=== PATIENT | female | born 1995 | race Caucasian/White ===

== ENCOUNTER 2018-12-25 17:18 | Emergency (ER) | payer SELFPAY ==
[2018-12-25 17:25] VITALS: BP 130/86
--- NOTE | 2018-12-25 17:47 | ER Document Report ---
ED Medical Screen (RME) - General Stated Complaint: ABSCESS/LEFT FOREARM Time Seen by Provider: 12/25/18 17:44 Mode of Arrival: Ambulatory Information source: Patient Notes: 23-year-old female with history of IV drug use presents to the emergency department with an abscess to her left forearm where she has been shooting up. No complaints of fever vomiting diarrhea. Reports she shoots up cocaine. Reports she had an abscess last year that needed surgery. I have greeted and performed a rapid initial assessment of this patient. A comprehensive ED assessment and evaluation of the patient, analysis of test results and completion of the medical decision making process will be conducted by additional ED providers. Dictation of this chart was performed using voice recognition software; therefore, there may be some unintended grammatical errors. - Related Data Allergies/Adverse Reactions: divalproex sodium [From Depakote] Allergy (Verified 12/25/18 17:46) Haldol Allergy (Uncoded 12/25/18 17:46) Physical Exam - Vital signs Vitals: Temp Pulse Resp BP Pulse Ox 98.0 F 100 18 130/86 H 98 12/25/18 17:24 12/25/18 17:24 12/25/18 17:24 12/25/18 17:24 12/25/18 17:24 Course - Vital Signs Vital signs: Temp Pulse Resp BP Pulse Ox 98.0 F 100 18 130/86 H 98 12/25/18 17:24 12/25/18 17:24 12/25/18 17:24 12/25/18 17:24 12/25/18 17:24
[2018-12-25 18:19] LABS: ABSOLUTE BASOPHILS # (AUTO) 0.1 10^3/uL (0.0-0.2); ABSOLUTE EOSINOPHILS # (AUTO) 0.5 10^3/uL (0.0-0.6); ABSOLUTE LYMPHOCYTES (AUTO) 2.5 10^3/uL (0.5-4.7); ABSOLUTE MONOCYTES (AUTO) 0.5 10^3/uL (0.1-1.4); ABSOLUTE NEUT (AUTO) 4.5 10^3/uL (1.7-8.2); BASOPHILS % (AUTO) 0.8 % (0-2); EOSINOPHILS % (AUTO) 6.1 % (0-6); HEMATOCRIT 39.9 % (36.0-47.0); HEMOGLOBIN 13.5 g/dL (12.0-15.5); LYMPHOCYTES % (AUTO) 31.4 % (13-45); MEAN CORPUSCULAR HGB CONC 33.9 g/dL (32.0-36.0); MEAN CORPUSCULAR VOLUME 83 fl (80-97); MONOCYTES % (AUTO) 6.2 % (3-13); PLATELET COUNT 336 10^3/uL (150-450); RED BLOOD COUNT 4.84 10^6/uL (3.72-5.28); RED CELL DISTRIBUTION WIDTH 14.1 % (11.5-14.0); SEGMENTED NEUTROPHILS % (AUTO) 55.5 % (42-78); TOTAL CELLS COUNTED % (AUTO) 100 %
[2018-12-25 18:33] LABS: ALBUMIN 4.2 g/dL (3.5-5.0); ALKALINE PHOSPHATASE 80 U/L (38-126); ANION GAP 8 (5-19); ASPARTATE AMINO TRANSFERASE 29 U/L (14-36); BILIRUBIN,DIRECT 0.2 mg/dL (0.0-0.4); BILIRUBIN,TOTAL 0.2 mg/dL (0.2-1.3); BLOOD UREA NITROGEN 11 mg/dL (7-20); CALCIUM 9.6 mg/dL (8.4-10.2); CARBON DIOXIDE 27 mmol/L (22-30); CHLORIDE 106 mmol/L (98-107); GLUCOSE 97 mg/dL (75-110); POTASSIUM 4.1 mmol/L (3.6-5.0); TOTAL PROTEIN 7.7 g/dL (6.3-8.2)
== END 2018-12-25 18:33 | disposition left against medical advice (07) ==
LOC: ER 17:18
DX: L02.414 Cutaneous abscess of left upper limb (principal); Z88.8 Allergy status to other drugs, medicaments and biological substances; Z53.20 Procedure and treatment not carried out because of patient's decision for unspecified reasons
CPT/HCPCS: 36415; 80053; 85025; 87040

== ENCOUNTER 2018-12-27 22:48 | Emergency (ER) | payer SELFPAY ==
--- NOTE | 2018-12-28 01:00 | ER Document Report ---
ED Extremity Problem, Upper - General Chief Complaint: Skin Problem Stated Complaint: POSSIBLE ABSCESS Time Seen by Provider: 12/28/18 00:52 Notes: Patient is a 23-year-old female that comes emergency department for chief complaint of 1 week of worsening swelling and pain with redness in the left mid forearm. She states she is concerned she has an abscess. She has had abscesses in the past. She does admit to injecting into the same area, she injects cocaine. In view within the past month, she denies any daily medications, she denies past medical history otherwise, she denies complaints otherwise. She denies fever. TRAVEL OUTSIDE OF THE [place] IN LAST 30 DAYS: No - Related Data Allergies/Adverse Reactions: divalproex sodium [From Depakote] Allergy (Verified 12/25/18 17:46) Haldol Allergy (Uncoded 12/25/18 17:46) Past Medical History - General Information source: Patient - Social History Smoking Status: Current Every Day Smoker Frequency of alcohol use: None Drug Abuse: Cocaine Lives with: Family Family History: Reviewed & Not Pertinent Patient has suicidal ideation: No Patient has homicidal ideation: No - Immunizations Immunizations up to date: Yes Hx Diphtheria, Pertussis, Tetanus Vaccination: Yes Review of Systems - Review of Systems Constitutional: No symptoms reported EENT: No symptoms reported Cardiovascular: No symptoms reported Respiratory: No symptoms reported Gastrointestinal: No symptoms reported Genitourinary: No symptoms reported Female Genitourinary: No symptoms reported Musculoskeletal: See HPI Skin: See HPI Hematologic/Lymphatic: No symptoms reported Neurological/Psychological: No symptoms reported Physical Exam - Vital signs Vitals: Temp Pulse Resp BP Pulse Ox 99 F 116 H 16 144/80 H 97 12/27/18 23:14 12/27/18 23:14 12/27/18 23:14 12/27/18 23:14 12/27/18 23:14 - Notes Notes: GENERAL: Alert, talks nervously but is otherwise well-appearing HEAD: Normocephalic, atraumatic. EYES: Pupils equal, round, and reactive to light. Extraocular movements intact. ENT: Oral mucosa moist, tongue midline. Oropharynx unremarkable. Airway patent. Nares patent, no nasal septal hematoma, TM's intact. NECK: Full range of motion. Supple. Trachea midline. LUNGS: Clear to auscultation bilaterally, no wheezes, rales, or rhonchi. No respiratory distress. HEART: Borderline tachycardic, normal rhythm, no murmur ABDOMEN: Soft, non-tender. Non-distended. Bowel sounds present in all 4 quadrants. GENITOURINARY: Deferred EXTREMITIES: There is a fluctuant swelling in the mid left forearm with surrounding cellulitis. No swelling at the elbow or wrist, full range of motion at the elbow and wrist, normal capillary refill and sensation. Otherwise unremarkable exam. BACK: no cervical, thoracic, lumbar midline tenderness. No saddle anesthesia, normal distal neurovascular exam. Moves all extremities in full range of motion. NEUROLOGICAL: Alert and oriented x3. Normal speech. Cranial nerves II through XII grossly intact. PSYCH: Speaks nervously but otherwise this is unremarkable SKIN: Warm, dry, normal turgor. No rashes or lesions noted. Course - Re-evaluation Re-evalutation: Patient with an obvious abscess with surrounding cellulitis. Patient initially very anxious about this but after discussion of options she was very agreeable with simply LMX being placed and the area being excised after being thoroughly cleansed. She did very well with this. Good purulent drainage was obtained, swelling actually did go down significantly, patient no longer has pain reported after the incision and drainage. She does not have a fever. She has no joint involvement. We will try oral antibiotics for the cellulitis with strict return precautions. X-ray was negative for any needle or concerning finding. I did discuss with patient substance abuse. She states that she has used cocaine intermittently, she states she is to have an alcohol problem and completely quit, she states that she feels she can completely quit this as well, she states she understands the extreme risks, she states that she does have good follow-up for psychiatric management and she does not want to be evaluated by mental health care. She denies SI or HI. Patient is calm, vital signs are normal now after the procedure, she expresses gratefulness and understanding of plan. Stable at time of discharge. - Vital Signs Vital signs: Temp Pulse Resp BP Pulse Ox 98.0 F 82 16 122/64 100 12/28/18 02:30 12/28/18 02:30 12/28/18 02:30 12/28/18 02:30 12/28/18 02:30 Procedures - Incision and Drainage Left forearm Type: Single Anesthetic type: Other - LMX Blade size: 11 I&D procedure: Shurclens applied, Sterile dressing applied Incision Method: Incision made by scalpel Amount/type of drainage: about 4 cc of purulent drainage - Laceration/Wound Repair Left forearm Wound length (cm): 0 Wound's Depth, Shape: Other - no laceration repair performed Discharge - Discharge Clinical Impression: Abscess Cellulitis Qualifiers: Site of cellulitis: extremity Site of cellulitis of extremity: upper extremity Laterality: left Qualified Code(s): L03.114 - Cellulitis of left upper limb Condition: Stable Disposition: HOME, SELF-CARE Additional Instructions: The abscess has been drained, continue to clean, clean with soap and water, keep absorbing dressing over the area. Take antibiotics as prescribed to completion. Follow-up with primary care. Return if you worsen including developing swelling, spreading redness, fever, or any other concerning or worsening symptoms. Prescriptions: Sulfamethoxazole/Trimethoprim [Bactrim Ds Tablet] 1 each PO BID #14 tablet Cephalexin Monohydrate [Keflex 500 mg Capsule] 500 mg PO QID #28 capsule
[2018-12-28] MEDS ORDERED: LIDOCAINE 1% INJ-PF (10 MG/ML) 30 ML SDV INJ ONE (01:03)
[2018-12-28] MEDS ORDERED: LIDOCAINE 4% TRANSPARENT DRESSING 5 GM KIT TP ONE (01:04)
--- NOTE | 2018-12-28 01:36 | RADIOLOGY REPORT (SQ) ---
2 VIEWS OF LEFT FOREARM EXAM DATE: 12/28/2018 1:03 AM CDT HISTORY: Evaluate for foreign body. COMPARISON: None. FINDINGS: No acute fracture or dislocation is seen. The joint spaces are preserved. The soft tissues are swollen. No radiopaque foreign body is identified. IMPRESSION: No acute fracture or foreign body.
[2018-12-28] MEDS ORDERED: SULFAMETHOXAZOLE/TRIMETHOPRIM 800-160 MG TABLET PO ONE (01:56)
[2018-12-28] MEDS ORDERED: CEPHALEXIN 500 MG CAPSULE PO ONE (01:56)
[2018-12-28 02:44] VITALS: BP 122/64
== END 2018-12-28 02:44 | disposition home or self-care (01) ==
LOC: ER 22:48
DX: L02.414 Cutaneous abscess of left upper limb (principal); L03.114 Cellulitis of left upper limb; F14.10 Cocaine abuse, uncomplicated; F17.200 Nicotine dependence, unspecified, uncomplicated; Z88.8 Allergy status to other drugs, medicaments and biological substances
CPT/HCPCS: 73090; 10060; J3490 ×2; 99283

== ENCOUNTER 2019-03-29 02:26 | Inpatient (IN) | payer SELFPAY ==
[2019-03-29] MEDS ORDERED: NORMAL SALINE 1000 ML 1,000 ML IV ONE (03:22)
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
[2019-03-29 03:44] LABS: ABSOLUTE BASOPHILS # (AUTO) 0.1 10^3/uL (0.0-0.2); ABSOLUTE EOSINOPHILS # (AUTO) 0.1 10^3/uL (0.0-0.6); ABSOLUTE NEUT (AUTO) 9.6 10^3/uL (1.7-8.2); EOSINOPHILS % (AUTO) 0.9 % (0-6); HEMATOCRIT 36.4 % (36.0-47.0); HEMOGLOBIN 12.3 g/dL (12.0-15.5); LYMPHOCYTES % (AUTO) 15.5 % (13-45); MEAN CORPUSCULAR HEMOGLOBIN 27.8 pg (27.0-33.4); MEAN CORPUSCULAR HGB CONC 33.9 g/dL (32.0-36.0); MEAN CORPUSCULAR VOLUME 82 fl (80-97); MONOCYTES % (AUTO) 7.4 % (3-13); PLATELET COUNT 293 10^3/uL (150-450); RED BLOOD COUNT 4.44 10^6/uL (3.72-5.28); RED CELL DISTRIBUTION WIDTH 13.8 % (11.5-14.0); SEGMENTED NEUTROPHILS % (AUTO) 75.2 % (42-78); TOTAL CELLS COUNTED % (AUTO) 100 %; WHITE BLOOD COUNT 12.8 10^3/uL (4.0-10.5)
[2019-03-29 03:46] LABS: VENOUS BLOOD BASE EXCESS 0.9 mmol/L; VENOUS BLOOD PCO2 43.1 mmHg (35-63); VENOUS BLOOD PH 7.4 (7.30-7.42)
[2019-03-29 04:09] LABS: ALBUMIN 3.8 g/dL (3.5-5.0); ALKALINE PHOSPHATASE 158 U/L (38-126); ANION GAP 10 (5-19); ASPARTATE AMINO TRANSFERASE 99 U/L (14-36); BILIRUBIN,DIRECT 0.3 mg/dL (0.0-0.4); BILIRUBIN,TOTAL 0.5 mg/dL (0.2-1.3); BLOOD UREA NITROGEN 15 mg/dL (7-20); CALCIUM 9.2 mg/dL (8.4-10.2); CARBON DIOXIDE 27 mmol/L (22-30); CHLORIDE 97 mmol/L (98-107); GLUCOSE 103 mg/dL (75-110); POTASSIUM 3.7 mmol/L (3.6-5.0); TOTAL PROTEIN 7.4 g/dL (6.3-8.2)
[2019-03-29 04:10] LABS: PROTHROMBIN TIME 13.2 SEC (11.4-15.4)
[2019-03-29] MEDS ORDERED: CHLORPROMAZINE HCL INJ 25 MG/1 ML AMPULE IV PRN (05:02)
[2019-03-29] MEDS ORDERED: MORPHINE SULFATE 10 MG/ML INJ IV PRN ×5 (05:02→10:18)
[2019-03-29] MEDS ORDERED: METOPROLOL TARTRATE PF/INJ 5 MG/5 ML SDV IV PRN (05:02)
[2019-03-29] MEDS ORDERED: HYDRALAZINE HCL INJ/PF 20 MG/1 ML SDV IV PRN (05:02)
[2019-03-29] MEDS ORDERED: IBUPROFEN 800 MG TABLET PO PRN (05:02)
[2019-03-29] MEDS ORDERED: ACETAMINOPHEN 325 MG TABLET PO PRN (05:02)
[2019-03-29] MEDS ORDERED: MAGNESIUM HYDROXIDE SUSP 30 ML UDCUP PO PRN (05:02)
[2019-03-29] MEDS ORDERED: NICOTINE 21 MG/24 HR PATCH.TD24 TD PRN (05:02)
[2019-03-29] MEDS ORDERED: MAG HYDROX/AL HYDROX/SIMETH SUSP 30 ML UDCUP PO PRN (05:02)
[2019-03-29] MEDS ORDERED: DEXTROSE 50%-WATER 25 GM/50 ML DISP.SYRIN IV PRN ×2 (05:08)
[2019-03-29] MEDS ORDERED: DEXTROSE 40% GEL 15 GM TUBE PO PRN ×2 (05:08)
[2019-03-29] MEDS ORDERED: PROMETHAZINE HCL INJ 25 MG/1 ML VIAL IV PRN ×2 (05:08→10:18)
[2019-03-29] MEDS ORDERED: GLUCAGON,HUMAN RECOMB 1 MG INJ SUBCUT PRN (05:08)
[2019-03-29] MEDS ORDERED: MEROPENEM 1 GM VIAL IV SCH (06:00)
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
[2019-03-29] MEDS: DEXTROSE 5%-LACTATED RINGERS 1,000 ML IV PRN ×2 (07:06→11:49)
[2019-03-29] MEDS ORDERED: MEROPENEM 1 GM VIAL ONE (07:07)
[2019-03-29] MEDS: HEPARIN SOD (PORCINE) 5,000 UNIT/ML 1 ML VIAL SUBCUT SCH ×2 (07:08→14:44)
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
[2019-03-29 07:26] LABS: APPEARANCE,URINE CLEAR; BILIRUBIN,URINE NEGATIVE (NEGATIVE); COLOR,URINE AMBER; GLUCOSE, URINE NEGATIVE (NEGATIVE); KETONES,URINE NEGATIVE (NEGATIVE); LEUKOCYTE ESTERASE,URINE NEGATIVE (NEGATIVE); NITRITE,URINE NEGATIVE (NEGATIVE); PROTEIN,URINE 30 mg/dL (NEGATIVE); URINE SPECIFIC GRAVITY 1.023
[2019-03-29] MEDS: MEROPENEM 1 GM in NORMAL SALINE 50 ML IV SCH ×2 (07:40→14:55)
[2019-03-29 07:41] LABS: URINE AMPHETAMINES SCREEN NEGATIVE; URINE BARBITURATES SCREEN NEGATIVE; URINE BENZODIAZEPINES SCREEN NEGATIVE; URINE MARIJUANA (THC) SCREEN NEGATIVE; URINE METHADONE SCREEN NEGATIVE; URINE PHENCYCLIDINE SCREEN NEGATIVE
[2019-03-29 07:43] LABS: URINE COCAINE SCREEN UNCONFIRMED POSITIVE
[2019-03-29] MEDS ORDERED: LIDOCAINE 1%/EPINEPHRINE INJ 20 ML VIAL ONE (08:30)
[2019-03-29] MEDS ORDERED: PROPOFOL INJ 200 MG/20 ML VIAL IV ONE (09:10)
[2019-03-29] MEDS ORDERED: MIDAZOLAM 2 MG/2 ML INJ ONE (09:10)
[2019-03-29] MEDS ORDERED: FENTANYL CITRATE INJ/PF 100 MCG/2 ML AMPUL ONE (09:10)
[2019-03-29] MEDS ORDERED: KETOROLAC TROMETHAMINE INJ/PF 30 MG/1 ML SDV IV PRN (09:28)
[2019-03-29] MEDS ORDERED: VANCOMYCIN HCL 2,000 MG in DEXTROSE 5%-WATER 500 ML IV SCH (10:00)
[2019-03-29] MEDS ORDERED: FAMOTIDINE INJ/PF 20 MG/2 ML SDV IV SCH (10:00)
[2019-03-29] MEDS ORDERED: VANCOMYCIN HCL INJ 1000 MG VIAL IV SCH (10:00)
--- NOTE | 2019-03-29 10:10 | Operative Report ---
Nonrecallable Operative Report DATE OF SURGERY: 03/29/19 PREOPERATIVE DIAGNOSIS: chest wall /breast abscess right POSTOPERATIVE DIAGNOSIS: Chest wall/breast abscess right side OPERATION: Excisional debridement chest wall/breast abscess right SURGEON: LIT BRODERICK ANESTHESIA: LMAC TISSUE REMOVED OR ALTERED: Skin subcutaneous tissue breast tissue right chest wall COMPLICATIONS: None ESTIMATED BLOOD LOSS: 25 cc INTRAOPERATIVE FINDINGS: See dictation PROCEDURE: Procedure; patient was brought the operating awake alert in stable condition placed in the upper table supine position given anesthesia. LMAC anesthesia was utilized. After appropriate timeout site verification the right breast and chest wall were prepped and draped in usual sterile fashion. Using 1% lidocaine with epinephrine I infiltrated the skin around the abscess which was approximately 2 cm in diameter but a area of 6 cm x 4 cm of induration. After anesthetizing the skin with 1% lidocaine with epi epinephrine elliptical incision was made around the abscess approximately 6 8 cm long by 4 cm wide at the superior aspect of the breast on the chest wall. Dissection was then carried down through subcutaneous tissue with the Bovie cautery until we brought reached the subcutaneous fibrofatty tissue and then down around the the abscess cavity to the pectoralis major muscle was then dissected off the muscle itself. It was sent for C&S and Gram stain and pathology. The wound bed was now clean but slightly indurated there is no other purulent drainage noted. Quarter inch Gaby drain was placed at the base of the wound brought out through the lateral aspect of it and the subcutaneous tissue was reapproximated with interrupted 2-0 Vicryl sutures the skin was then left open and packed with a saline soaked Betadine sponge. Sterile dressing was then applied the patient was then transferred recovery in stable condition
[2019-03-29] MEDS ORDERED: MEPERIDINE HCL/PF INJ 25 MG/1 ML DISP.SYRIN IV PRN (10:18)
[2019-03-29] MEDS ORDERED: DIPHENHYDRAMINE HCL 50 MG/ML VIAL IV PRN (10:18)
[2019-03-29] MEDS ORDERED: FENTANYL CITRATE INJ/PF 100 MCG/2 ML AMPUL IV PRN ×3 (10:18)
[2019-03-29] MEDS ORDERED: KETOROLAC TROMETHAMINE INJ/PF 30 MG/1 ML SDV ONE (10:32)
[2019-03-29] MEDS ORDERED: LORAZEPAM INJ 2 MG/1 ML VIAL ONE (10:33)
[2019-03-29] MEDS ORDERED: HYDROMORPHONE HCL INJ/PF 2 MG/ML AMPULE ONE (10:33)
[2019-03-29] MEDS: DOCUSATE SODIUM 100 MG CAPSULE PO SCH ×2 (11:49→18:00)
[2019-03-29] MEDS: VANCOMYCIN HCL 1,250 MG in DEXTROSE 5%-WATER 250 ML IV SCH ×2 (11:49→17:58)
[2019-03-29 18:47] VITALS: BP 122/67
--- NOTE | 2019-03-29 20:44 | EKG REPORT ---
SEVERITY:- ABNORMAL ECG - SINUS TACHYCARDIA FIRST DEGREE AV BLOCK RIGHT ATRIAL ABNORMALITY BORDERLINE T WAVE ABNORMALITIES : Confirmed by: Obinna Sawant 29-Mar-2019 20:43:45
--- NOTE | 2019-03-30 16:45 | Left Against Medical Advice ---
Against Medical Advice Admission Date/Time: 03/29/19 05:06 Primary Care Provider: Date of Patient Emigration: 03/29/19 - Diagnosis: (1) Abscess or cellulitis of chest wall Is this a current diagnosis for this admission?: Yes (2) Intravenous drug abuse Is this a current diagnosis for this admission?: Yes - Summary: Summary: Please see Admission and Progress Notes as well. DESTINY HENAO is a 23 F, who LEFT AGAINST MEDICAL ADVICE. The Patient was admitted on 03/29/19 05:06. Found out this morning that patient apparently left AMA last night. She agreed to stay for 1 more night yesterday afternoon when I discussed the risks of going against AMA. Belly Dancer was not made aware by evening staff that patient went AMA.
== END 2019-03-29 19:53 | disposition left against medical advice (07) | DRG 572 ==
LOC: ER 02:26 → EH 05:06 → 3S 06:24
PROVIDERS: ADMIT Emergency Medicine; ATTEND Emergency Medicine
PROC: 0JB60ZZ Excision of Chest Subcutaneous Tissue and Fascia, Open Approach (ICD-10-PCS; principal; 2019-03-29 10:00)
DX: L02.213 Cutaneous abscess of chest wall (principal); F11.10 Opioid abuse, uncomplicated; F14.10 Cocaine abuse, uncomplicated; F17.210 Nicotine dependence, cigarettes, uncomplicated; Z83.3 Family history of diabetes mellitus; Z82.49 Family history of ischemic heart disease and other diseases of the circulatory system; Z90.49 Acquired absence of other specified parts of digestive tract; Z88.8 Allergy status to other drugs, medicaments and biological substances
CPT/HCPCS: 36415; 400; 80053; 80307; 81001; 82803; 83605; 84703; 85025; 85610; 87040; 87070; 87075; 87077; 87086; 87205; 88305; 93005; 93010; 96360; 99284; 99406; J1170; J1885; J2060; J2185; J2250; J2270; J2704; J3010; J3370; J3490; J7030; J7060; J7121; S0028

== ENCOUNTER 2019-03-31 15:31 | Emergency (ER) | payer SELFPAY ==
[2019-03-31 15:41] VITALS: BP 114/78
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
[2019-03-31 18:51] LABS: APPEARANCE,URINE SLIGHTLY-CLOUDY; BILIRUBIN,URINE NEGATIVE (NEGATIVE); COLOR,URINE YELLOW; GLUCOSE, URINE NEGATIVE (NEGATIVE); KETONES,URINE NEGATIVE (NEGATIVE); PROTEIN,URINE NEGATIVE (NEGATIVE); URINE SPECIFIC GRAVITY 1.017
[2019-03-31 19:33] LABS: ABSOLUTE EOSINOPHILS # (AUTO) 0.4 10^3/uL (0.0-0.6); ABSOLUTE LYMPHOCYTES (AUTO) 1.8 10^3/uL (0.5-4.7); ABSOLUTE MONOCYTES (AUTO) 0.6 10^3/uL (0.1-1.4); ABSOLUTE NEUT (AUTO) 3.6 10^3/uL (1.7-8.2); BASOPHILS % (AUTO) 0.6 % (0-2); HEMOGLOBIN 11.6 g/dL (12.0-15.5); LYMPHOCYTES % (AUTO) 27.8 % (13-45); MEAN CORPUSCULAR HEMOGLOBIN 27.9 pg (27.0-33.4); MEAN CORPUSCULAR HGB CONC 34.1 g/dL (32.0-36.0); MEAN CORPUSCULAR VOLUME 82 fl (80-97); PLATELET COUNT 329 10^3/uL (150-450); RED BLOOD COUNT 4.15 10^6/uL (3.72-5.28); RED CELL DISTRIBUTION WIDTH 13.8 % (11.5-14.0); SEGMENTED NEUTROPHILS % (AUTO) 56.6 % (42-78); TOTAL CELLS COUNTED % (AUTO) 100 %; WHITE BLOOD COUNT 6.4 10^3/uL (4.0-10.5)
[2019-03-31 19:34] LABS: ALBUMIN 3.3 g/dL (3.5-5.0); ALKALINE PHOSPHATASE 217 U/L (38-126); ANION GAP 10 (5-19); ASPARTATE AMINO TRANSFERASE 101 U/L (14-36); BILIRUBIN,DIRECT 0.3 mg/dL (0.0-0.4); BILIRUBIN,TOTAL 0.4 mg/dL (0.2-1.3); BLOOD UREA NITROGEN 10 mg/dL (7-20); CARBON DIOXIDE 27 mmol/L (22-30); CHLORIDE 100 mmol/L (98-107); GLUCOSE 99 mg/dL (75-110); TOTAL PROTEIN 6.6 g/dL (6.3-8.2)
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
[2019-03-31] MEDS ORDERED: SULFAMETHOXAZOLE/TRIMETHOPRIM 800-160 MG TABLET PO ONE (20:42)
[2019-03-31 21:20] LABS: URINE AMPHETAMINES SCREEN NEGATIVE; URINE BARBITURATES SCREEN NEGATIVE; URINE MARIJUANA (THC) SCREEN NEGATIVE; URINE METHADONE SCREEN NEGATIVE; URINE PHENCYCLIDINE SCREEN NEGATIVE
[2019-03-31 21:27] LABS: URINE BENZODIAZEPINES SCREEN UNCONFIRMED POSITIVE; URINE COCAINE SCREEN UNCONFIRMED POSITIVE
== END 2019-03-31 20:57 | disposition home or self-care (01) ==
LOC: ER 15:31
DX: N61.1 Abscess of the breast and nipple (principal); Z48.89 Encounter for other specified surgical aftercare; F14.10 Cocaine abuse, uncomplicated; F11.10 Opioid abuse, uncomplicated; F19.10 Other psychoactive substance abuse, uncomplicated; F17.210 Nicotine dependence, cigarettes, uncomplicated; Z88.8 Allergy status to other drugs, medicaments and biological substances
CPT/HCPCS: 36415; 80053; 80307; 81001; 85025; 99283